=== PATIENT | female | born 1995 | race Caucasian/White ===

== ENCOUNTER → 2024-04-24 10:43 | Outpatient (REF) | payer OTHER, SELFPAY | LOC: HWRAD 10:43 | PROVIDERS: ATTENDING PHYSICIAN Hospitalist | DX: R22.1 Localized swelling, mass and lump, neck (principal) | CPT/HCPCS: 76536 ==

== ENCOUNTER → 2024-06-16 13:36 | Day surgery (SDC) | payer OTHER, SELFPAY ==
[2024-06-16] VITALS (10 sets, daily range): BP systolic 118–138; BP diastolic 80–98; BMI 33.4
--- NOTE | 2024-06-16 09:20 | ED.GENMED ---
History of Present Illness
General
Chief Complaint: Abdominal Pain
Source: patient
Exam Limitations: none
Time Seen by Provider: 06/16/24 09:12
History of Present Illness
History of Present Illness:
29-year-old female presents with gradually worsening right lower abdominal pain since yesterday. She denies nausea or vomiting but does note decreased appetite. No urinary symptoms or flank pain. Last menstrual cycle was about 3 weeks ago. No
prior abdominal surgical history. She does not take any medications regularly. The pain is made worse to the touch and with motion. No other complaints at this time
Phy Exam
Physical Exam
Physical Exam:
General: Well-appearing female no acute respiratory distress
HEENT: Normocephalic atraumatic
Heart: Regular rate and rhythm
Lungs: Clear no wheeze
Abdomen is soft tender to the right lower abdomen no guarding or rebound nondistended no costovertebral angle tenderness
Extremities: No cyanosis
Course
Orders/Labs/Results
Orders:
Orders
06/16/24 09:19
CT Abd/pelvis W Iv Cont Urgent
Comment:
Reason For Exam: rlq pain
Test Result ONCE
06/16/24 09:42
Complete Blood Count/With Diff Urgent
Comprehensive Metabolic Panel Urgent
HCG, Serum Qualitative Screen Urgent
06/16/24 09:45
Urinalysis Reflex To Culture Urgent
Date Specimen was Collected: 06/16/24
Time Specimen was Collected: 09:43
Urine Microscopic Reflex Cult Urgent
Urine Culture Urgent
ALON Source: U
Specimen Description:
Date Specimen was Collected: 06/16/24
Time Specimen was Collected: 09:43
06/16/24 11:15
Zosyn 3.375 grams IVPB NOW Piperacillin/Tazo 3.375 Gram [Zosyn] 3.375 gram in 50 ml IV NOW
Abnormal Lab Results
06/16/24 06/16/24
09:42 09:45
WBC 13.3 H 10^3/uL
(4.8-10.8)
Abs Immat Gran (auto) 0.1 H 10^3/uL
(0-0.05)
Absolute Neuts (auto) 10.5 H 10^3/uL
(1.4-6.5)
Absolute Monos (auto) 0.8 H 10^3/uL
(0.1-0.6)
Neutrophils % 78.9 H %
(42.2-75.2)
Lymphocytes % 13.6 L %
(20.5-51.1)
BUN 6 L mg/dl
(7-17)
Glucose 106 H mg/dl
(70-99)
Leukocyte Esterase Rfl 2+ A
(Negative)
Urine RBC 3-6 A /HPF
(0-2)
Urine WBC (Reflex) 16-20 A /HPF
(0-5)
Urine Bacteria (Reflex) Moderate A
(Negative)
Urine Yeast Few A
(Negative)
Urine Albumin (Reflex) 2+ A
(Neg - Trace)
06/16/24 09:42
06/16/24 09:42
Vital Signs
Initial and Last Documented VS:
Initial Vital Signs
Temp Pulse Resp BP Pulse Ox
99 F 93 18 138/98 99
06/16/24 08:34 06/16/24 08:34 06/16/24 08:34 06/16/24 08:34 06/16/24 08:34
Last Documented Vital Signs
Temp Pulse Resp BP Pulse Ox
99 F 77 16 133/88 97
06/16/24 08:34 06/16/24 11:14 06/16/24 11:14 06/16/24 11:14 06/16/24 11:14
MDM/Problems Addressed
Differential Diagnosis Includes:
Abdominal pain. Differential could include appendicitis versus constipation versus ovarian cyst or torsion versus musculoskeletal pain
Given gradually worsening pain and tenderness to the right lower quadrant will order CT scan. Labs pending urinalysis pending. Patient declined any pain medication
*Critical Care Note
Total Time (30-74mins, 75-104mins- exclusive of procedures): Not Applicable
Update Note
Update Note:
CT consistent with acute appendicitis with appendix measuring 1.3 cm in diameter with surrounding stranding. White blood cell count is 13,000. Patient still comfortable. Surgery made aware. Will admit to hospital
ED Attending Note
-
Portions of this chart may have been created with voice recognition software.� Occasional wrong word or��sound alike� substitutions may have occurred due to the inherent limitations of voice recognition software.
Discharge Plan
Departure
Patient Disposition: Admit
Date of Disposition: 06/16/24
Time of Disposition: 11:16
Presentation/result/management discussed w/ accepting MD/DO: Valerie
Discharge Problem:
Acute appendicitis
Prescriptions:
No Action
No Current Medications
pantoprazole [Protonix] 40 mg tablet,delayed release (DR/EC)
40 mg PO DAILY Qty: 14 0RF
Referrals:
June Randolph MD [Family Provider] -
Interventions
Interventions:
*Risk Screen - Suicide Last Done: 06/16/24 09:40
*General Assessment Last Done: 06/16/24 09:40
*Neglect/Abuse Screening Last Done: 06/16/24 09:40
*ED- Fall Risk Assessment Last Done: 06/16/24 09:40
*ED COVID-19 Vaccine History Last Done: 06/16/24 09:40
BG-Cfbsxh-Jzxjerfpze Assessment Last Done: 06/16/24 09:40
Discharge Date and Time
Print Language: TELUGU
[2024-06-16 09:57] LABS: % Basophils 0.3 % (0-2); % Eosinophils 0.8 % (0-6); % Immature Granulocytes 0.4 % (0-0.5); % Lymphocytes 13.6 % (20.5-51.1); % Neutrophils 78.9 % (42.2-75.2); Absolute Eosinophils 0.1 10^3/uL (0-0.7); Absolute Immature Granulocytes 0.1 10^3/uL (0-0.05); Absolute Lymphocytes 1.8 10^3/uL (1.2-3.4); Absolute Monocytes 0.8 10^3/uL (0.1-0.6); Absolute Neutrophils 10.5 10^3/uL (1.4-6.5); Hematocrit 37.9 % (37.0-47.0); Hemoglobin 13.7 g/dL (12.0-16.0); Mean Corp Hgb Conc. 36.1 g/dL (33.0-37.0); Mean Corpuscular Hgb 30.8 pg (27.0-31.0); Mean Corpuscular Volume 85.2 fL (81.0-99.0); Nucleated Red Blood Cells % 0 %; Platelet Count 251 10^3/uL (130-400); Red Blood Cell Count 4.45 10^6/uL (4.20-5.40); Red Cell Dist. Width 11.7 % (11.5-14.5); White Blood Cell Count 13.3 10^3/uL (4.8-10.8)
[2024-06-16 09:57] LABS: Urine Albumin 2+ (Neg - Trace); Urine Bilirubin Negative (Negative); Urine Character Clear (Clear); Urine Color Yellow; Urine Glucose Negative (Negative); Urine Ketone Negative (Negative); Urine Leukocyte 2+ (Negative); Urine Nitrite Negative (Negative); Urine Occult Blood Negative (Negative); Urine Specific Gravity 1.025 (<1.030); Urine Urobilinogen Negative (Neg - 1+)
[2024-06-16 10:11] LABS: HCG, Serum Qualitative Screen Negative
[2024-06-16 10:16] LABS: ALT (SGPT) 13 U/L (0-35); AST (SGOT) 14 U/L (14-36); Albumin 4.2 g/dl (3.5-5.0); Alkaline Phosphatase 80 U/L (38-126); Blood Urea Nitrogen 6 mg/dl (7-17); Calcium 9.4 mg/dl (8.4-10.2); Carbon Dioxide 26 mmol/L (22-30); Chloride 103 mmol/L (98-107); Estimated Creatinine Clearance > 125 ml/min; Glucose 106 mg/dl (70-99); Potassium 3.9 mmol/L (3.5-5.1); Sodium 139 mmol/L (135-145); Total Bilirubin 0.8 mg/dl (0.2-1.3); Total Protein 7.1 g/dl (6.3-8.2); eGFR > 60.00
[2024-06-16 10:32] LABS: Urine Squamous Cell >30 /LPF (Few)
[2024-06-16 10:34] LABS: Urine Amorphous Seen
[2024-06-16 10:35] LABS: Urine Bacteria Moderate (Negative); Urine White Cell 16-20 /HPF (0-5)
[2024-06-16 10:36] LABS: Urine Yeast Few (Negative)
--- NOTE | 2024-06-16 11:32 | EDRN ---
Lisy MELTON was in to see pt for surgery. Pt is to go to OR later when OR staff arrives.
[2024-06-16] MEDS: ZOSYN 50 IV (11:33)
--- NOTE | 2024-06-16 11:36 | HPS.HSE ---
Addendum entered and electronically signed by Rod Padilla MD 06/16/24 12:25:
Patient seen and examined in follow-up in the preoperative holding area for history and physical. Agree with documented H&P by surgical DIRECTOR [employer].
Patient's mother at bedside.
HPI: 29-year-old female with no significant pertinent medical history presenting with acute onset abdominal pain yesterday which has increased in severity and localized to right lower quadrant. Anorexia but no nausea or vomiting. Bowels have been
moving regularly. No similar episodes in the past.
No past abdominal surgical history. PMH only for migraines
AFVSS NAD AAO x 3
ABD: Soft, nondistended, tenderness palpation localized in the right lower quadrant with some voluntary guarding.
CT imaging with a distended appendix and surrounding inflammatory changes consistent with acute appendicitis. No findings suggestive of rupture or abscess. No additional notable incidental findings.
Assessment: 29-year-old female with acute appendicitis.
Reviewed with patient and her mother at bedside history, examination and CT imaging consistent with acute appendicitis. Discussed both operative and nonoperative management options and associated risks/benefits of approaches. Patient is in agreement
to proceed with appendectomy.
Laparoscopic appendectomy reviewed in detail with the patient. Discussed operative technique utilizing diagrams or drawings, alternative management options, benefits and potential risks such as but not limited to bleeding, infectious or wound
healing complications, iatrogenic injury to surrounding viscera. Discussed the typical postoperative recovery pending operative findings.
Any of the patient's concerns or questions were fully addressed and informed consent was obtained.
Plan: OR for laparoscopic appendectomy.
Empiric antibiotic coverage with Zosyn administered in the emergency department.
Nothing by mouth, IV fluid hydration and supportive care awaiting operative room availability.
SCDs for DVT prophylaxis
Original Note:
Family Physician
-
Family Physician: June Randolph MD
Chief Complaint
-
RLQ pain
History of Present Illness
29 yo female with a h/o migraines who presents through the ED with RLQ which began yesterday morning and persisted into today causing her to present for evaluation. She denies n/v but has had loss of appetite and did not eat breakfast. She denies
fevers or chils. She denies changes dysuria or voiding changes. She denies constipation or diarrhea. On exam the RLQ is tender with +Rovsing sign.
Medical History
Past Medical History
Past Medical History: Reports Other (Migraines)
Past Surgical History: Reports Other (dental: graft to gums, wisdom teeth)
Social History
Tobacco: Non-smoker
Alcohol: None
Personal:
Living: With Family
Employment: Other (second time worker student)
Family History
Family History: Not pertinent
Allergies / Home Medications
Allergies reflects when Allergies were last updated in [email or web address].
Home Medications with original date entered in [email or web address]
Allergy/Medication List:
Patient Allergies
Allergy/AdvReac Type Severity Reaction Status Date / Time
codeine Allergy Severe syncope Verified 06/16/24 08:34
�Medication �Instructions �Recorded �Confirmed �Type
No Meds [No Current Medications] 06/16/24 06/16/24 History
Review of Systems
-
History Source: Patient
A 12 point ROS was completed and negative except as noted: Yes
Physical Exam
Vital Signs
Vital Signs
Temp Pulse Resp BP Pulse Ox
99 F 77 16 133/88 97
06/16/24 08:34 06/16/24 11:14 06/16/24 11:14 06/16/24 11:14 06/16/24 11:14
Physical Exam
General: Well Developed and Well Nourished
HEENT: Moist mucous membranes
Respiratory: Non Labored Respirations
GI: Soft, Non Distended and Tender (RLQ, +Rovsing)
Skin: Warm and Dry
Neuro: Awake, Alert and AO x 3
Psych: Calm
Laboratory Results
-
06/16/24 09:42
06/16/24 09:42
Laboratory Results
Total Bilirubin 0.8 mg/dl (0.2-1.3) 06/16/24 09:42
AST 14 U/L (14-36) 06/16/24 09:42
ALT 13 U/L (0-35) 06/16/24 09:42
Alkaline Phosphatase 80 U/L (38-126) 06/16/24 09:42
Data Reviewed
-
CT Scan: Image Personally Visualized and interpreted, Report Reviewed by me, Discussed with Physician, Discussed with Patient and Discussed with Family ( and mother at bedside)
Lab Data: Labs Reviewed by me, Discussed with Physician and Discussed with Patient
Old Records: Reviewed
Impression/Plan
-
IMPRESSION: 29 yo female presenting with approximately 24 hours of RLQ pain. CT imaging reviewed and consistent with acute appendicitis as is exam. AFVSS. Mild leukocytosis.
Discussed management of appendicitis with patient and family including surgical and nonsurgical options. Opting to pursue surgical management.
PLAN:
NPO for OR today for laparoscopic appendectomy
Zosyn being given in the ED
Analgesics/antiemetics
SCDs intraop for vte ppx
--- NOTE | 2024-06-16 11:53 | EDRN ---
Report given to Jose Roberto TO at this time.
--- NOTE | 2024-06-16 12:25 | W.SUR.PREOP ---
Pre-Operative Surgical Note
-
I have examined this patient prior to the performance of the scheduled procedure.
The patient's condition is unchanged from the time of the current History and
Physical and the patient is able to undergo the scheduled procedure.
--- NOTE | 2024-06-16 13:32 | W.IMMPOSTOP ---
Surgical Immed Post Op Note
-
Primary Surgeon: Rod Padilla MD
Assisting Surgeon: Lisy Jeong NP, INTERNET ASSESSOR -s
Pre-op Diagnosis: Acute appendicitis
Post-op Diagnosis: Acute appendicitis
Procedure Performed: Laparoscopic appendectomy
Anesthesia Type: GETA +0.25% Marcaine
Specimen / Cultures: Appendix
Estimated Blood Loss: 4mL
Complications: none immediate
Operative Findings: Acutely inflamed and indurated appendix with filmy surrounding inflammatory lesions. Mesoappendix easily exposed and divided with the Voyant vessel sealing device. Base of appendix divided flush with cecum utilizing Endo SELVIN 40
mm articulating stapler, granda load. No purulence. Free fluid aspirated out of the pelvis and right lower quadrant.
--- NOTE | 2024-06-16 13:38 | OR.RPT ---
Operative Report
Operative Report
Date of operative procedure: 06/16/2024
Primary Surgeon: Rod Padilla MD
Instructional Technology Coach: Lisy Jeong NP, KENYON-s
Pre-op Diagnosis: Acute appendicitis
Post-op Diagnosis: Acute appendicitis
Procedure Performed: Laparoscopic appendectomy
Anesthesia: GETA +0.25% Marcaine
Specimen / Cultures: Appendix/none
Estimated Blood Loss: 4 mm
Complications: None immediate
Indications for Operative Procedure: 29-year-old female with no significant pertinent medical history presenting with acute onset abdominal pain yesterday which has increased in severity and localized to right lower quadrant. Anorexia but no
nausea or vomiting. Bowels have been moving regularly. No similar episodes in the past. Emergency department evaluation confirmed right lower quadrant tenderness. CT imaging consistent with acute appendicitis. I reviewed treatment options with
the patient and her mother at bedside preoperatively and she was in agreement to proceed with appendectomy. The anticipated surgical procedure (laparoscopic appendectomy) was reviewed in detail with the patient preoperatively obtaining informed
consent.
Brief Summary of Operative Findings: Acutely inflamed and indurated appendix with filmy surrounding inflammatory lesions. Mesoappendix easily exposed and divided with the Voyant vessel sealing device. Base of appendix divided flush with cecum
utilizing Endo SELVIN 40 mm articulating stapler, granda load. No purulence. Free fluid aspirated out of the pelvis and right lower quadrant. Appendix extracted at 12 mm suprapubic trocar site.
Operation in Detail: The patient was identified in the preoperative holding area. I confirmed the anticipated surgical procedure with the patient at bedside preoperatively. She was interviewed by the anesthesia and nursing staff then brought back
to the operating room. The patient was placed on the operating table in supine position. The right upper extremity was carefully placed on a padded arm board and the left upper extremity was carefully padded and tucked at her side. Pneumatic
compression boots were on the bilateral lower extremities. Following induction of general endotracheal anesthesia the patient's anterior abdominal wall was now widely and sterilely prepped with ChloraPrep and then draped in the usual manner. The
surgical time out was completed and the procedure was confirmed. The patient had been recently dosed with Zosyn in the emergency department.
I initially proceeded with Veress needle insufflation at the left subcostal midclavicular line location. Once insufflated to 12 mmHg pressure then a left lower quadrant lateral 5 mm trocar was placed with optical viewing entry. The laparoscope was
inserted. There was no evidence of iatrogenic injury from access and the Veress needle was withdrawn. An infraumbilical 5 mm trocar was placed followed by a suprapubic 12 mm trocar, all under direct visualization. The patient was now transition
into Trendelenburg and right side up to aid in exposure of the right lower quadrant.
The cecum and terminal ileum were visualized in the right lower quadrant. They were carefully grasped with an atraumatic grasper and retracted to expose the base of the cecum. The appendix was immediately identified. The appendix was adherent
overlying the right pelvic brim and base of the small bowel mesentery. The filmy adhesions were easily freed. There was no purulence, no abscess, no perforation of the appendix. The mesoappendix was now carefully exposed. A laparoscopic 5 mm
Voyant bipolar vessel sealer was utilized to carefully divide the mesoappendix for hemostasis until the base of the appendix was fully exposed. There was no significant thickening or inflammation at the base of the cecum. The appendix was now
divided flush with the cecum utilizing an Endo SELVIN 40 mm granda articulating stapler. The appendix was placed within the specimen retrieval bag intact.
The surgical field was now inspected. The staple line was complete, intact along the entire length and hemostatic. The residual clear/serous free fluid in the pelvis was suctioned out as well. The patient was now returned to neutral position and
the cecum and terminal ileum were reflected back into their typical anatomic position.
The appendix was extracted at the 12 mm trocar site without dilation of the fascia. The fascia was then closed at the 12 mm site with a single [id number] 0 Vicryl stitch placed utilizing the Endo Close device. Insufflation gas was fully
evacuated and the 5 mm trocar sites were removed. Skin was closed at all of the laparoscopic surgical sites with buried interrupted 4-0 Monocryl. Sterile surgical glue dressings were applied to all surgical sites. The patient tolerated the
procedure well and was transferred to the recovery unit for routine postoperative monitoring.
I was present for the entirety of the operative procedure.
== END | disposition home or self-care (01) ==
LOC: EMR 08:20 → PACU 13:36
PROVIDERS: Physician Assistant; ATTENDING PHYSICIAN Surgery; EMERGENCY PHYSICIAN Student in an Organized Health Care Education/Training Program; FAMILY PHYSICIAN Hospitalist
DX: K35.80 Unspecified acute appendicitis (principal)
CPT/HCPCS: 44970; 88304; 74177; 80053; 81003; 81015; 84703; 85025; 87086; 99285; Q9967